=== PATIENT | female | born 1980 ===

== ENCOUNTER 2018-03-09 09:12 | Emergency (ER) | payer OTHER, SELFPAY ==
[2018-03-09 09:23] VITALS: BMI 33.2
[2018-03-09 10:15] LABS: SQUAMOUS EPITHIAL 9 /hpf (0-5); URINE BACTERIA RARE (<OCC); URINE BILIRUBIN NEGATIVE (NEGATIVE); URINE BLOOD MODERATE (NEGATIVE); URINE CLARITY SLIGHTY-CLOUDY (Clear); URINE COLOR YELLOW (YELLOW); URINE GLUCOSE (UA) NEG (Normal); URINE LEUKOCYTE ESTERASE TRACE Leu/uL (Negative); URINE PROTEIN NEGATIVE (NEGATIVE); URINE UROBILINOGEN 0.2-1.0 mg/dL (0.2-1.0)
[2018-03-09 10:35] LABS: BASO # 0.1 K/uL (0.0-0.2); BASO % 0.8 % (0.0-2.0); EOS % 0.6 % (0.0-4.0); HEMOGLOBIN 10.3 g/dL (12.0-16.0); LYMPH # 1.4 K/uL (1.0-4.3); LYMPH % 18.3 % (20.0-40.0); MEAN CELL VOLUME 75.4 fl (81.0-99.0); MEAN CORPUSCULAR HEMOGLOBIN 24.5 pg (27.0-31.0); MEAN CORPUSCULAR HGB CONC 32.6 g/dL (33.0-37.0); MEAN PLATELET VOLUME 9.1 fl (7.2-11.7); MONO # 0.6 K/uL (0.0-0.8); MONO % 7.6 % (0.0-10.0); NEUT # 5.5 K/uL (1.8-7.0); NEUT % 72.7 % (50.0-75.0); RBC 4.19 Mil/uL (3.80-5.20); WHITE BLOOD COUNT 7.5 K/uL (4.8-10.8)
--- NOTE | 2018-03-09 10:40 | ED PDOC ---
HPI: Female Pain Time Seen by Provider: 03/09/18 09:31 Chief Complaint (Nursing): Female Genitourinary Chief Complaint (Provider): blood in urine History Per: Patient, Director Of Global Sales (Meño [id number]) Onset/Duration Of Symptoms: Days (1) Current Symptoms Are (Timing): Still Present Severity: Mild Quality Of Discomfort: Burning Associated Symptoms: Urinary Symptoms. denies: Fever, Chills, Back Pain Additional Complaint(s): 37yo female noted yesterday with fatigue and body aches, last night noted blood in urine with some dysuria, denies fever, back pain or abd pain. States menses normal LMP Sept 10, denies current vaginal bleeding. States had UTI "long time" ago and reports cystoscopy 6 years ago for ? uretheral issue, but denies urinary issues since. Past Medical History Reviewed: Historical Data, Nursing Documentation, Vital Signs Vital Signs: Last Vital Signs Temp 97 F L 03/09/18 09:22 Pulse 79 03/09/18 09:22 Resp 18 03/09/18 09:22 BP 147/79 03/09/18 09:22 Pulse Ox 100 03/09/18 09:22 - Medical History PMH: No Chronic Diseases - Surgical History Surgical History: - Family History Family History: States: Unknown Family Hx - Social History Current smoker - smoking cessation education provided: No - Home Medications Home Medications: Ambulatory Orders Medication Instructions Recorded Cephalexin [cephalexin] 500 mg PO TID #21 cap 03/09/18 Phenazopyridine [Pyridium] 100 mg PO BID #6 tab 03/09/18 - Allergies Allergies/Adverse Reactions: Allergies Allergy/AdvReac Type Severity Reaction Status Date / Time No Known Allergies Allergy Verified 03/09/18 09:36 Review of Systems ROS Statement: Except As Marked, All Systems Reviewed And Found Negative Constitutional: Negative for: Fever Cardiovascular: Negative for: Chest Pain Respiratory: Negative for: Shortness of Breath Gastrointestinal: Negative for: Abdominal Pain Genitourinary Female: Positive for: Dysuria, Frequency, Hematuria. Negative for: Incontinence, Vaginal Bleeding, Pelvic Pain Musculoskeletal: Negative for: Neck Pain, Back Pain, Leg Pain Skin: Negative for: Rash, Lesions, Jaundice Neurological: Positive for: Other (fatigue). Negative for: Weakness, Seizures, Headache Physical Exam - Reviewed Nursing Documentation Reviewed: Yes Vital Signs Reviewed: Yes - Physical Exam Appears: Positive for: Well, Non-toxic, No Acute Distress Head Exam: Positive for: ATRAUMATIC, NORMAL INSPECTION, NORMOCEPHALIC Skin: Positive for: Normal Color, Warm, DRY Eye Exam: Positive for: EOMI, Normal appearance, PERRL ENT: Positive for: Normal ENT Inspection Neck: Positive for: Normal, Painless ROM Cardiovascular/Chest: Positive for: Regular Rate, Rhythm Respiratory: Positive for: CNT, Normal Breath Sounds Gastrointestinal/Abdominal: Positive for: Soft. Negative for: Tenderness, Gua rding Back: Positive for: Normal Inspection. Negative for: L CVA Tenderness, R CVA Tenderness Extremity: Positive for: Normal ROM Neurologic/Psych: Positive for: Alert, Oriented. Negative for: Motor/Sensory Deficits - Laboratory Results Result Diagrams: 03/09/18 10:19 03/09/18 10:19 - ECG O2 Sat by Pulse Oximetry: 100 Medical Decision Making Medical Decision Making: Udip +blood TR leuks obtain basic labs and r/o intrinsic renal issue vs UTI vs other requires followup EYELETTER and urology given prev hx cystoscopy and ?urethral issue Disposition - Clinical Impression Clinical Impression: Hematuria, UTI (urinary tract infection), Anemia - Patient ED Disposition Is Patient to be Admitted: No Counseled Patient/Family Regarding: Studies Performed, Diagnosis, Need For Followup - Disposition Referrals: [facility] [Outside] Humble Bartlett Jr., MD [Staff Provider] - Disposition: Routine/Home Disposition Time: 12:30 (approx) Condition: STABLE Additional Instructions: Followup urine culture in 2-3 days See urologist and rotor casting machine operator for followup and exam given history of urethral abnormality. Return to ER for any worse or new symptoms, fever, clots in urine, or any concern. -------- Seguimiento del cultivo de orina en 2-3 gilbert Mercedes urlogo y gineclogo para seguimiento y examen de antecedentes de anomala uretral. Vuelva a er para mercedes si hay sntomas peores o nuevos, fiebre, cogulos en la orina o cualquier preocupacin. Prescriptions: Cephalexin [cephalexin] 500 mg PO TID #21 cap Phenazopyridine [Pyridium] 100 mg PO BID #6 tab Instructions: Urinary Tract Infection, Adult (DC), Blood in the Urine (Hematuria), Adult (DC) Forms: [facility] (Vietnamese) Print Language: SINHALA
[2018-03-09 10:42] LABS: BLOOD UREA NITROGEN 11 mg/dl (7-17); GFR NON-AFRICAN AMERICAN > 60
[2018-03-09 11:52] VITALS: BP 138/81; PULSE 64; RESP 17; TEMP 98
[2018-03-22 14:39] VITALS: O2SAT 100
== END 2018-03-09 11:50 | disposition home or self-care (01) ==
LOC: H.ER 09:12
DX: E31.9 Polyglandular dysfunction, unspecified (principal); N39.0 Urinary tract infection, site not specified; D64.9 Anemia, unspecified